=== PATIENT | female | born 1955 | race Caucasian/White ===

== ENCOUNTER 2019-06-27 18:55 | Emergency (ER) | payer OTHER, SELFPAY ==
[2019-06-27 19:05] VITALS: BP 154/99; PULSE 85; RESP 20; TEMP 36.8; O2SAT 98
--- NOTE | 2019-06-27 19:27 | ED.GENADULT ---
HPI - General Adult General Chief complaint: Back Pain/Injury Stated complaint: back pain/injury Time Seen by Provider: 06/27/19 19:27 Source: patient Mode of arrival: ambulatory Limitations: no limitations History of Present Illness HPI narrative: 63-year-old female patient presents to the [facility] with complaints of left lower back pain for the past 5 days. Patient states that she hit her back on a radiator when she was dancing around on Monday. Patient states that she has a bruise there and it has been painful. Patient states that she was taking a nap today when to go rolled over and heard a pop to this area. Patient states that she is put some menthol to the area but denies using heat denies using any Tylenol or ibuprofen for the pain. Patient denies any numbness or tingling down the legs. Denies any spinal pain. Denies any loss of bowel or bladder control. Related Data Home Medications Medication Instructions Recorded Confirmed B-complex with vitamin C 1 tablet PO DAILY 06/06/19 06/27/19 ibuprofen 200 mg tablet 200 mg PO Q6H PRN 06/06/19 06/27/19 magnesium oxide 400 mg PO DAILY 06/06/19 06/27/19 Allergies Allergy/AdvReac Type Severity Reaction Status Date / Time beef derived (bovine) Allergy Unknown unknown Verified 06/27/19 19:09 codeine Allergy Unknown Unknown Verified 06/27/19 19:09 latex Allergy Unknown Unknown Verified 06/27/19 19:09 wheat Allergy unknown Verified 06/27/19 19:09 Review of Systems Review of Systems: Narrative: CONSTITUTIONAL: Denies fever, chills, or sweats. EYES: Denies visual changes, redness, or discharge. ENT: Denies rhinorrhea, congestion, sore throat, or otalgia. CARDIOVASCULAR: Denies chest pain, palpitations, or edema. RESPIRATORY: Denies cough or dyspnea. GASTROINTESTINAL: Denies abdominal pain, nausea, vomiting, or diarrhea. GENITOURINARY: Denies dysuria or hematuria. SKIN: Denies rash or itching. MUSCULOSKELETAL: Positive low back pain, denies joint pain, or myalgia. NEUROLOGIC: Denies headache, numbness, or weakness. PSYCHIATRIC: Denies anxiety or depression. [facility] Social History Social History (System 05/21/19 @ 09:13 by Ann R. Vandever) Smoking status: Never smoker Alcohol intake: current Comments At the time of my signature I agree with nursing past medical history, surgical, social, and family history. There is no relevant family history pertinent to the presenting complaint. Exam Narrative: Exam Narrative: GENERAL: Well-appearing, well-nourished, and in no acute distress. HEAD: Normocephalic, atraumatic. EYES: PERRLA and EOMI. ENT: Nares clear, no rhinorrhea or epistaxis. Mucous membranes moist. NECK: Supple. No lymphadenopathy CHEST: Clear to auscultation. No respiratory distress. HEART: Regular rate and rhythm. No murmur heard. Normal peripheral pulses. ABDOMEN: Soft, nontender, nondistended, normal active bowel sounds. EXTREMITIES: Normal range of motion. No edema. BACK: Patient is able to ambulated without assistance. Pt is hunched over on the stretcher. There is a healing bruise noted to the left lower back area that has some yellowing to it. muscle tenderness to Palpation over the left lower back area with spasm, no mass. No step-offs or deformity noted to the cervical, thoracic or lumbar spine to firm Palpation at the midline. No CVA tenderness to percussion. No saddle anesthesia. ROM: able to stand erect. Normal flexion, extension, Lateral bending and rotation without limitation or complaint of pain. SKIN: Warm, dry, no rash. NEURO: No focal deficits. Alert and oriented x3. Course Vital Signs Vital signs: Vital Signs Temperature 36.8 C 06/27/19 19:05 Pulse Rate 85 06/27/19 19:05 Respiratory Rate 20 06/27/19 19:05 Blood Pressure 154/99 H 06/27/19 19:05 Pulse Oximetry 98 06/27/19 19:05 Temperature 36.8 C 06/27/19 19:05 Pulse Rate 85 06/27/19 19:05 Respiratory Rate 20 06/27/19 19:05 Blood Pressure 154/99 H
== END 2019-06-27 19:37 | disposition home or self-care (01) ==
PROVIDERS: Emergency Provider Nurse Practitioner Family
DX: S39.012A Strain of muscle, fascia and tendon of lower back, initial encounter (principal); X50.9XXA Other and unspecified overexertion or strenuous movements or postures, initial encounter; I10 Essential (primary) hypertension
CPT/HCPCS: 99212; G0463

== ENCOUNTER 2019-10-02 07:47 | Outpatient (CLI) | payer OTHER, SELFPAY ==
--- NOTE | ~2019-10-02 | DEXA_ITS ---
Bone Density Report Name: Haven Gray Age: 64 Sex: Female Ethnicity: White Date of : 1955 Indication: postmenopausal; hysterectomy; Referring Provider: SEAN MORRELL Study: Bone densitometry was performed. Exam Date: October 02, 2019 Accession number: [id number] Bone Density: Region BMD T-score Z-score Classification AP Spine (L1-L4) 0.922 -1.1 0.6 Osteopenia Femoral Neck (Left) 0.658 -1.7 -0.3 Osteopenia Total Hip (Left) 0.960 0.2 1.3 Normal Total Hip Bilateral Avg 0.968 0.3 1.4 Normal Femoral Neck (Right) 0.679 -1.5 -0.1 Osteopenia Total Hip (Right) 0.975 0.3 1.4 Normal World Health Organization criteria for BMD impression classify patients as: Normal (T-score at or above -1.0), Osteopenia (T-score between -1.0 and -2.5), or Osteoporosis (T-score at or below -2.5). 10-year Fracture Risk(1): Major Osteoporotic Fracture 8.9% Hip Fracture 1.0% Reported Risk Factors: [place] (), Neck BMD=0.658, BMI=32.5 (1) FRAX(R) Version 3.08. Fracture probability calculated for an untreated patient. Fracture probability may be lower if the patient has received treatment. Clinical Information Provided by Patient: Has used the following medications: Vitamin D, Calcium Has the following medical conditions: Hysterectomy Patient maximum height was 61 Menopause Age: 45 No regular weight bearing exercise Drinks caffeinated beverages Onset of menses at age 12 Number of children 1 Impression: The patient has low bone mass, based on the Left Femoral Neck T-score. The patient has an estimated ten-year risk of hip fracture of 1% and an estimated ten-year risk of major fracture of 8.9%, based on the WHO FRAX algorithm. Discussion: BONE DENSITY IS LOW AT ONE OR MORE SKELETAL SITES. This patient's lowest T-score is low at one or more skeletal sites. It meets the World Health Organization's (WHO) criteria for ?low bone mass? (T-score between -1.0 and -2.5). The patient's 10-year risk of fracture as calculated by FRAX is less than the threshold where pharmacological therapy is recommended by the National Osteoporosis Foundation (NOF). However, all treatment decisions require clinical judgment and consideration of individual patient factors, including patient preferences, comorbidities, previous drug use, risk factors not captured in the FRAX model (e.g., frailty, falls, vitamin D deficiency, increased bone turnover, interval significant decline in bone density) and possible under or overestimation of fracture risk by FRAX. The patient should follow a healthful lifestyle (good nutrition with adequate calcium and vitamin D, and appropriate weight-bearing exercise). Follow-Up: Consider repeating this study in 2 to 3 years to reassess this patient's status, or sooner if there is some new clinical indication. Repo
== END 2019-10-02 07:48 | disposition home or self-care (01) ==
LOC: ANHIMG 07:49
PROVIDERS: PCP Emergency Medicine; Visit Provider Emergency Medicine
DX: Z13.820 Encounter for screening for osteoporosis (principal); M85.89 Other specified disorders of bone density and structure, multiple sites
CPT/HCPCS: 77080

== ENCOUNTER 2023-10-12 12:59 | Outpatient (CLI) | payer MEDICARE, OTHER, SELFPAY ==
--- NOTE | 2023-10-12 | ECG_ITS ---
[facility] [address] Test Date: 2023-10-12 Pat Name: Haven Gray Department: Room: Gender: F Lawyer Probate: NILE : 1955 Requested By: Pawel Reyes Order Number: [id number] Alex MD: Rashad Garcia D.O. Measurements Intervals [place] Rate: 63 P: 50 NC: 176 QRS: -18 QRSD: 94 T: 67 QT: 370 QTc: 380 Interpretive Statements SINUS RHYTHM NONSPECIFIC T-WAVE ABNORMALITY- ANTEROLATERAL LEADS BORDERLINE ECG No previous ECG available for comparison Electronically Signed On 10-12-2023 15:05:37 CDT by Rashad Garcia D.O.
--- NOTE | 2023-10-12 | ECHO_ITS ---
Patient Info Name: Haven Gray Age: 68 years : 1955 Gender: Female Ht: 61 in Wt: 173 lbs BSA: 1.87 m2 HR: 70 bpm BP: 152 / 103 mmHg Heart Rhythm: Sinus Rhythm Technical Quality: Good Exam Date: 10/12/2023 2:10 PM Exam Location: Echo Lab Patient Status: Outpatient Admit Date: 10/12/2023 Staff Ordering Physician: EricPawel MD Maintenance Custodian: Tamara Rivera RDCS Attending Provider: AntonyPawel MD Exam Type: CA echo doppler color flow Study Info Indications I10 - Essential (primary) hypertension Complete two-dimensional, color flow and Doppler transthoracic echocardiogram is performed. Summary 1. Complete two-dimensional, color flow and Doppler transthoracic echocardiogram is performed. 2. Left ventricular chamber dimension is normal. 3. Left ventricular systolic function is normal, estimated at 60-65%. 4. There is mildly increased left ventricular wall thickness. 5. The left ventricular diastolic function is grade I diastolic dysfunction. 6. Right ventricular systolic function is normal. 7. No significant valvular disease. Left Ventricle Left ventricular chamber dimension is normal. Left ventricular systolic function is normal, estimated at 60-65%. There is mildly increased left ventricular wall thickness. The left ventricular diastolic function is grade I diastolic dysfunction. Right Ventricle Right ventricular chamber dimension is normal. Right ventricular systolic function is normal. Left Atria Left atrial chamber dimension is normal. Right Atria Right atrial chamber dimension is normal. Atrial Septum Intact interatrial septum visualized by color flow imaging. Aortic Valve The aortic valve is trileaflet. There is no aortic valve stenosis. There is no aortic valve regurgitation. There is mild aortic valve calcification. Pulmonic Valve The pulmonic valve is not well visualized. Mitral Valve There is trace mitral valve regurgitation. Tricuspid Valve There is trace tricuspid valve regurgitation. Pericardium/Pleural The pericardium appears epicardial fat pad. There is no pericardial effusion. Inferior Vena Cava Normal inferior vena cava with >50% collapse upon inspiration consistent with normal right atrial pressure, 3 mmHg. Aorta The aortic root size at the sinus of Valsalva is normal. Left Ventricular Outflow Tract Name Value Normal LVOT 2D LVOT Diameter 2.0 cm LVOT Doppler LVOT Peak Gradient 5 mmHg LVOT Mean Gradient 2 mmHg LVOT VTI 23 cm LVOT VTI/AV VTI Ratio 1.1 LVOT Stroke Volume 69 ml LVOT CO 4.5 l/min LVOT CI 2.4 l/min/m2 Pulmonic Valve Name Value Normal RVOT Doppler RVOT Peak Gradient 2 mmHg PV Doppler
== END 2023-10-12 13:00 | disposition home or self-care (01) ==
PROVIDERS: PCP Internal Medicine; Visit Provider Internal Medicine
DX: I11.9 Hypertensive heart disease without heart failure (principal)
CPT/HCPCS: 93005; 93306

== ENCOUNTER 2023-10-23 14:26 | Outpatient (CLI) | payer MEDICARE, OTHER, SELFPAY ==
--- NOTE | ~2023-10-23 | DEXA_ITS ---
Bone Density Report Name: LIMA TOUSSAINT Age: 68 Sex: Female Ethnicity: White Date of : 1955 Indication: osteopenia; cancer; hysterectomy; Referring Provider: BASIL CHANG Study: Bone densitometry was performed. Exam Date: October 23, 2023 Accession number: [id number] Bone Density: Region BMD T-score Z-score Classification AP Spine(L1-L4) 0.914 -1.2 0.8 Osteopenia Femoral Neck (Left) 0.606 -2.2 -0.5 Osteopenia Total Hip (Left) 0.919 -0.2 1.2 Normal Femoral Neck (Right) 0.636 -1.9 -0.2 Osteopenia Total Hip (Right) 0.987 0.4 1.8 Normal Total Hip Mean 0.953 0.1 1.5 Normal World Health Organization criteria for BMD impression classify patients as: Normal (T-score at or above -1.0), Osteopenia (T-score between -1.0 and -2.5), or Osteoporosis (T-score at or below -2.5). 10-year Fracture Risk(1): Major Osteoporotic Fracture 12% Hip Fracture 3.4% Reported Risk Factors: [place] (), Neck BMD=0.606, BMI=33.0, smoking (1) FRAX(R) Version 3.08. Fracture probability calculated for an untreated patient. Fracture probability may be lower if the patient has received treatment. Previous Exams: Region Exam Age BMD T-score BMD Change BMD Change Date g/cm2 vs Baseline vs Previous AP Spine (L1-L4) 10/23/2023 68 0.914 -1.2 -0.007 (-0.8%) -0.007 (-0.8%) 10/02/2019 64 0.922 -1.1 Total Hip(Left) 10/23/2023 68 0.919 -0.2 -0.042 (-4.4%) -0.042 (-4.4%) 10/02/2019 64 0.960 0.2 Total Hip(Right) 10/23/2023 68 0.987 0.4 0.012 (1.3%) 0.012 (1.3%) 10/02/2019 64 0.975 0.3 *Denotes significance at 95% confidence level, LSC for AP Spine = 0.022 g/cm2, LSC for Total Hip = 0.027 g/cm2 Clinical Information Provided by Patient: Smokes Has the following medical conditions: Cancer, Hysterectomy Patient maximum height was 61 Menopause Age: 45 No regular weight bearing exercise Drinks caffeinated beverages Onset of menses at age 13 Number of children 1 Impression: The patient has low bone mass, based on the Left Femoral Neck T-score. The patient has an estimated ten-year risk of hip fracture of 3.4% and an estimated ten-year risk of major fracture of 12%, based on the WHO FRAX algorithm. The patient has risk factors, including: smoking. The BMD for the Total Hip(Left) decreased, changing by -4.4% since the last DXA exam. Discussion: BONE DENSITY IS LOW AT ONE OR MORE SKELETAL SITES. THE PATIENT'S BMD
--- NOTE | ~2023-10-23 | MM_ITS ---
EXAMINATION: MM screening lane BI w alma HISTORY: Screening TECHNIQUE: Craniocaudal and mediolateral oblique 3-D tomosynthesis images were obtained and synthetic 2-D images were generated. CAD analysis was submitted and interpreted. COMPARISON: 01/24/2019 BREAST PARENCHYMAL COMPOSITION: Not dense: There are scattered areas of fibroglandular density. FINDINGS: There is no evidence of suspicious mass, calcification, or architectural distortion to sugg est malignancy in either breast. There has been no suspicious interval change. IMPRESSION: 1. No mammographic evidence of malignancy. 2. Recommend routine screening mammography in one year. BI-RADS Category 1: Negative Reviewed, dictated and finalized at location B.
== END 2023-10-23 14:27 | disposition home or self-care (01) ==
PROVIDERS: PCP Internal Medicine; Visit Provider Internal Medicine
DX: Z12.31 Encounter for screening mammogram for malignant neoplasm of breast (principal); Z78.0 Asymptomatic menopausal state; M85.88 Other specified disorders of bone density and structure, other site; M85.852 Other specified disorders of bone density and structure, left thigh; M85.851 Other specified disorders of bone density and structure, right thigh
CPT/HCPCS: 77063; 77067; 77080

== ENCOUNTER 2024-02-22 11:09 | Outpatient (CLI) | payer MEDICARE, OTHER, SELFPAY ==
--- NOTE | ~2024-02-22 | XR_ITS ---
Clinical Indication: Chest pain PA and lateral views of the chest: Comparison: None Findings: The lungs are clear, without evidence of focal consolidation or pleural effusion. Cardiome diastinal silhouette is within normal limits. Bones and soft tissues are unremarkable. Impression: Normal chest. Reviewed, dictated and finalized at location . Impression: Normal chest.
== END 2024-02-22 11:10 | disposition home or self-care (01) ==
LOC: MICIMG 11:11
PROVIDERS: PCP Internal Medicine; Visit Provider Internal Medicine
DX: R07.9 Chest pain, unspecified (principal)
CPT/HCPCS: 71046

== ENCOUNTER 2024-05-02 01:28 | Day surgery (SDC) | payer MEDICARE, OTHER, SELFPAY ==
[2024-05-01 12:41] VITALS: BMI 32.9
[2024-05-02] VITALS (13 sets, daily range): BP systolic 101–229; BP diastolic 81–112; PULSE 52–66; RESP 12–17; TEMP 36.7; O2SAT 92–99; BMI 32.9
[2024-05-02 07:34] LABS: Basophils Absolute Auto 0.1 K/mm3 (0.0-0.1); Basophils Percent Auto 0.8 % (0.2-1.2); Eosinophils Absolute Auto 0.3 K/mm3 (0-0.3); Eosinophils Percent Auto 2.8 % (0-4.4); Hematocrit 45.5 % (37.0-47.0); Immature Granulocyte Absolute 0.05 K/mm3 (0.00-0.031); Immature Granulocyte Percent A 0.6 % (0-0.5); Lymphocytes Absolute Auto 2.32 K/mm3 (0.9-3.2); Lymphocytes Percent Auto 26.4 % (18.3-44.2); Mean Corpuscular Hemoglobin 30.9 pg (26-34); Mean Corpuscular Volume 93.8 fl (80-100); Mean Platelet Volume 9.5 fl (7.4-10.4); Monocytes Absolute Auto 0.7 K/mm3 (0.1-0.6); Monocytes Percent Auto 8.4 % (2.6-8.5); Neutrophils Absolute Auto 5.4 K/mm3 (1.3-6.7); Platelet Count Result 350 k/mm3 (150-375); Red Blood Count 4.85 M/mm3 (4.2-5.4); Red Cell Distribution Width 12.1 % (11.5-14.5); White Blood Count 8.8 K/mm3 (4.5-10.0)
[2024-05-02 07:50] LABS: Anion Gap 4 mmol/L (4-12); Blood Urea Nitrogen 14 mg/dL (7-17); Calcium 9.2 mg/dL (8.4-10.2); Carbon Dioxide 32 mmol/L (22-30); Chloride 102 mmol/L (98-107); Estimated CRCL calculation 56 ml/min; Estimated Glomerular Filt Rate > 60; Glucose 122 mg/dL (65-110); Potassium 4.3 mmol/L (3.4-5.0); Sodium 138 mmol/L (137-145)
--- NOTE | 2024-05-02 09:19 | P.SEDATION_ITS ---
Moderate Sedation Note-Pt Data Patient Data Allergies Allergy/AdvReac Type Severity Reaction Status Date / Time beef derived (bovine) Allergy Intermediate Blister Verified 05/02/24 07:23 codeine Allergy Intermediate Nausea and Verified 05/02/24 07:23 Vomiting latex Allergy Intermediate Back Pain Verified 05/02/24 07:23 wheat Allergy Intermediate Blister Verified 05/02/24 07:23 hydrocodone AdvReac Intermediate Nausea and Verified 05/02/24 07:23 Vomiting Home Medications ?Medication ?Instructions ?Recorded ?Confirmed ?Type atorvastatin 10 mg tablet 10 mg PO QPM 05/01/24 05/01/24 History carvedilol 3.125 mg tablet 3.125 mg PO Q12H 05/01/24 05/01/24 History celecoxib 200 mg capsule 200 mg PO DAILY PRN pain 05/01/24 05/01/24 History omeprazole 20 mg capsule,delayed 20 mg PO DAILY 05/01/24 05/01/24 History release Sedation/Anesthesia: No previous sedation/anesthesia problems (including family history). [facility] Social History Social History (System 09/29/21 @ 12:54 by Mame Mendoza) Smoking status: Never smoker Alcohol intake: current Drinks per week: 3 Substance use: never Substance use type: marijuana Living arrangements: with family Additional living arrangements comments: Spiritual care concerns: No Mod Sed Physical Exam Physical Exam Pre Procedural Exam: Normal: Heart Rate and Heart Rhythm Hours since solid foods: 12 Hours since liquid intake: 12 Mallampati Classification: class II Internal Medicine - PN: Obj Da Vital Signs Vital Signs: Vital Signs - 24 hr 05/02/24 07:25 Temperature 36.7 C Pulse Rate 63 Respiratory Rate 14 Blood Pressure 229/112 H Pulse Oximetry 99 Oxygen Delivery Room Air Labs 05/02/24 07:19 05/02/24 07:19 Labs: Laboratory Results - last 24 hr 05/02/24 07:19 WBC 8.8 RBC 4.85 Hgb 15.0 Hct 45.5 MCV 93.8 MCH 30.9 MCHC 33.0 RDW 12.1 Plt Count 350 MPV 9.5 Immature Gran % (Auto) 0.6 H Neut % (Auto) 61.0 Lymph % (Auto) 26.4 [place] % (Auto) 8.4 Eos % (Auto) 2.8 Baso % (Auto) 0.8 Lymph # (Auto) 2.32 [place] # (Auto) 0.7 H Eos # (Auto) 0.3 Baso # (Auto) 0.1 Abs Immat Gran (auto) 0.05 H Absolute Neuts (auto) 5.4 Absolute Nucleated RBC 0.000 Nucleated RBC % 0.0 Sodium 138 Potassium 4.3 Chloride 102 Carbon Dioxide 32 H Anion Gap 4 BUN 14 Creatinine 0.80 Estim Creat Clear Calc 56 Estimated GFR > 60 Glucose 122 H Calcium 9.2 ASA Classification/Sedation ASA Classification/Sedation ASA Class: III Emergent: No Risks: Risks, benefits and alternatives explained and patient/family accepted plan for sedation. Patient re-evaluated immediately prior to sedation.
--- NOTE | 2024-05-02 09:19 | WPDHPUPDATE1 ---
History and Physical Update Update Date/Time: 05/02/24 08:19 History and Physical has been reviewed, including an updated exam of the patient. There are NO changes in the patient's condition. Risks, benefits, and alternatives have been discussed and questions answered. Patient agrees to proceed with procedure.
--- NOTE | 2024-05-02 09:20 | P.PCNCC_ITS ---
Cardiac Cath Procedure Note Date of procedure:: 05/02/24 Performing physician:: CATHETERIZATION LABORATORY REPORT Procedure Date: 05/02/2024 Referring Physician: Dr. Grullon Anesthesia: Versed and Fentanyl were ordered and given in my presence at 0854, procedure ended at 0911. Supervision of nurse, Stacy Brewer monitored moderate sedation with 2mg Versed and 100mcg Fentanyl was provided for 17 minutes. Pre-op Diagnosis: Abnormal Stress Test Post-op Diagnosis: Abnormal Stress Test Procedure(s): Left heart catheterization with coronary angiography Access Site: Right radial artery. Hemostasis with TR band Brief History and Clinical Indications: All risks, benefits and alternatives to left heart catheterization with or without percutaneous coronary intervention was discussed at length with the patient. Risk of complications including but not limited to bleeding, infection, arrhythmia, stroke, worsening kidney function, blood loss, groin hematoma, limb loss, emergency coronary artery bypass grafting, and even were discussed with the patient and all questions were answered. The patient understood and wished to proceed. Time out called, patient name, date of , medical record number, allergies, procedure performed, identify Reimbursement Analyst, patient and staff member concurred with accurate data, procedure carried on. Findings: LEFT HEART CATHETERIZATION FINDINGS: 1. Left main: The left main coronary artery is widely patent without any significant obstructive disease. 2. Left anterior descending: The LAD and the diagonal branches have mild luminal irregularities without any significant obstructive angiographic disease. 3. Left circumflex: The left circumflex artery and the main marginal branches are normal. 4. Right coronary artery: The RCA has mild luminal irregularities without any significant obstructive angiographic disease. The RCA is the dominant vessel. 5. Left ventricle: A. End-diastolic pressure 30 mmHg. B. LV gram deferred. C. No significant gradient across aortic valve on catheter pullback. 6. Opening AO pressure 176/98 and closing AO pressure 163/90; 400mcg IC nitroglycerin was given in the left system. 400mcg IA nitroglycerin was given. Description of Procedure: Informed consent signed and placed in the chart. Patient transferred to chemistry laboratory technician room. Prepped and draped in usual sterile fashion. 2% lidocaine injected s ubcutaneously in right wrist area. 22-gauge venipuncture catheter used to access the right radial artery with the Seldinger technique. 6-FR slender sheath placed in right radial artery. Nitroglycerin 200mcg, Verapamil 2.5mg, and Heparin 5000U was given intraarterial through the sheath. J wire advanced under fluoroscopy 5F TIG diagnostic catheter engaged Left Main Coronary Artery. 5F TIG diagnostic catheter engaged Right Coronary Artery Multiple orthogonal angiogram obtained and reviewed 5F Pigtail diagnostic catheter crossed aortic valve to obtain LVEDP, LV angiogram deferred. Hemostasis was achieved by application of TR band. Assessment: Mild CAD Post Operative Condition: Stable No significant blood loss Disposition: Home Plan: The patient will be monitored in the recovery area. The above findings were discussed with the referring physician. Continue aggressive medical therapy and risk factor modification. Symptoms most likely blood pressure driven. Javon Guadalupe Interventional Cardiology
== END 2024-05-02 12:36 | disposition home or self-care (01) ==
PROVIDERS: PCP Internal Medicine; Visit Provider Internal Medicine
PROC: 4A023N7 Measurement of Cardiac Sampling and Pressure, Left Heart, Percutaneous Approach (ICD-10-PCS; CPT 93452; principal; 2024-05-02 08:00)
DX: I25.10 Atherosclerotic heart disease of native coronary artery without angina pectoris (principal); R94.39 Abnormal result of other cardiovascular function study; Z87.891 Personal history of nicotine dependence; I10 Essential (primary) hypertension; E78.5 Hyperlipidemia, unspecified; R06.09 Other forms of dyspnea
CPT/HCPCS: 36415; 80048; 85025; 93458; C1769; C1887; C1894; J1644; J2003; J2250; J2305; J2405; J3010; J7040